=== PATIENT | female | born 1960 | race Caucasian/White ===

== ENCOUNTER 2017-08-26 13:05 | Emergency (ER) | END 2017-08-26 18:59 | disposition home or self-care (01) ==

== ENCOUNTER 2019-04-11 18:35 | Emergency (ER) | payer OTHER ==
[~2019-04-11] VITALS: Ht 139.7 cm; Wt 117.0 kg
[~2019-04-11 18:35] MED LIST: ADMELOG SUBCUTANE; AMLO-147 ORAL; AMLO-218 PO; ASPI-817 ORAL; ASPI-831 PO; ATEN-51 PO; ATOR40TA68 ORAL; CARB100T2 PO; CEPH-443 PO; IBUP-1542 PO; INSU100I33 SUBCUTANE; INSULIN; LOSA100T15 ORAL; MELO7.5T38 ORAL; METF-849 PO; OMEP40CA6 ORAL; OXCA300T41 ORAL; PRED20TA PO; SITA1TAB5 PO; TRAM50TA2 PO; ZOC10 PO; [UNRECOGNIZED DRUG - CODE] ORAL
[2019-04-11 18:53] VITALS: Ht 139.7 cm; Wt 117.0 kg
[2019-04-11] MEDS ORDERED: ONDANSETRON 4 MG INJ IV STA (19:24)
[2019-04-11] MEDS ORDERED: morphine 4 MG/ML VIAL IV STA (19:24)
[2019-04-11 19:25] VITALS: BP 12/62; PULSE 72; RESP 18
[2019-04-11] MEDS ORDERED: CEPHALEXIN 500 MG CAP PO ONE (21:30)
== END 2019-04-11 22:07 | disposition home or self-care (01) ==
LOC: E/R 18:35
DX: N30.90 Cystitis, unspecified without hematuria (principal); I10 Essential (primary) hypertension; E11.9 Type 2 diabetes mellitus without complications; E87.1 Hypo-osmolality and hyponatremia; Z79.4 Long term (current) use of insulin; Z79.82 Long term (current) use of aspirin; Z87.891 Personal history of nicotine dependence
CPT/HCPCS: 36415; 71045; 74176; 80053; 81001; 82962; 83690; 84484; 85025; 96374; 96375; J2270; J2405; Z7502; Z7610; 93005